=== PATIENT | female | born 1955 | race Caucasian/White ===

== ENCOUNTER 2019-04-30 18:08 | Emergency (ER) | payer OTHER ==
[~2019-04-30] VITALS: Ht 175.3 cm; Wt 72.6 kg
[2019-04-30] MEDS ORDERED: LORazepam 2MG/ML-1ML VIAL ONE (21:36)
[2019-04-30 22:15] VITALS: BP 135/62
== END 2019-04-30 22:31 | disposition home or self-care (01) ==
LOC: EDBD 18:08 → ER 18:13
DX: F19.10 Other psychoactive substance abuse, uncomplicated (principal); R11.2 Nausea with vomiting, unspecified
CPT/HCPCS: 99283; J2060